=== PATIENT | female | born 1970 | race Caucasian/White ===

== ENCOUNTER → 2019-07-27 | Outpatient (CLI) | payer BC ==
[~2019-07-27] MED LIST: CIPRO 500MG TA500 MG PO; NORCO 325 MG-51 TAB PO; PHENERGAN 25 TA25 MG PO; ZOFRAN 4MG T4 MG/TAB PO
== END ==
LOC: MC.RAD 14:28
DX: Z12.31 Encounter for screening mammogram for malignant neoplasm of breast (principal)

== ENCOUNTER 2024-07-24 09:29 | Day surgery (SDC) | payer BC ==
[~2024-07-24] VITALS: Ht 162.6 cm; Wt 76.5 kg
[~2024-07-24 09:29] MED LIST changes: +LR 1,000 ML IV SCH; +Ondansetron 4 MG/2 ML VIAL IV PRN
[2024-07-24 11:02] VITALS: BP 117/72; PULSE 50; TEMP 96.8
[2024-07-24] MEDS ORDERED: LEXAPRO 10MG10 MG PO (11:06)
[2024-07-24] MEDS ORDERED: FISH OIL 1000MG1 CAP PO (11:06)
[2024-07-24] MEDS ORDERED: MULTI VITAMINS1 TAB PO (11:07)
[2024-07-24] MEDS ORDERED: MELATONIN1 MG PO (11:07)
[2024-07-24] MEDS ORDERED: Glycopyrrolate 0.2 MG/ML 1 ML VIAL ONE (11:11)
[2024-07-24] MEDS ORDERED: Lidocaine PF 2% (20 MG/ML) 5 ML VIAL ONE (11:11)
[2024-07-24 11:45] VITALS: BP 111/73; PULSE 66; TEMP 96.8
--- NOTE | 2024-07-24 11:45 | NUR ---
1145: Pt arrives to [facility] via cart. Pt amb to chair, denies nausea/pain. VSS on room air. Offered PO juice/muffin. 1220: Dr Ingram in to talk to pt. 1225: Discharge instructions reviewed, understanding verbalized. Questions invited and answered.
[2024-07-24 12:00] VITALS: BP 117/80; PULSE 59
== END 2024-07-24 12:30 | disposition home or self-care (01) ==
LOC: SDCO 09:29
DX: K21.00 Gastro-esophageal reflux disease with esophagitis, without bleeding (principal); K44.9 Diaphragmatic hernia without obstruction or gangrene; E66.9 Obesity, unspecified; Z68.34 Body mass index [BMI] 34.0-34.9, adult; Z86.0100 Personal history of colon polyps, unspecified
CPT/HCPCS: J2704